=== PATIENT | male | born 1980 | race Caucasian/White ===

== ENCOUNTER 2021-09-16 11:18 | Emergency (ER) | payer OTHER, SELFPAY ==
--- NOTE | ~2021-09-16 | XR_ITS ---
EXAMINATION: [id number] EXAM DATE: 09/16/2021 11:36 INDICATION: No known recent injury provided at this time. Pain of the left ribs under breast. TECHNIQUE: Frontal projection of the upper left ribs, frontal projection of the lower left ribs, obli que projection of the left ribs, frontal chest x-ray(s) for interpretation. There is no prior study for comparison. FINDINGS: There are no displaced acute left rib fractures identified. Consider educating patient mya t even if there is a radiographically occult nondisplaced rib fracture, there is no specific treatmen t other than to refrain from activity that prevents healing. There is no soft tissue abnormality seen . No confluent consolidation, pneumothorax or pleural effusion suspected. Cardiomediastinal silhouett e is normal. IMPRESSION: No displaced left rib fractures. Reviewed, dictated and finalized at location [facility]
--- NOTE | 2021-09-16 11:24 | ED.BACK ---
HPI - Back Pain/Injury General Chief Complaint: Wound/Laceration Stated Complaint: left side upper rib pain Time Seen by Provider: 09/16/21 11:24 Source: patient and RN notes reviewed History of Present Illness HPI Narrative: Patient is a 41-year-old male who presents the urgent care with complaints of left-sided rib pain after a lot of coughing and sneezing. Patient states he has bronchitis during this time of year and has been using his inhaler as needed. Patient denies of any fevers or productive cough. States that he has been taking ibuprofen for his pain. Patient states that started approximately 3 days ago after a bad coughing fit. Patient is denying of any shortness of breath or chest tightness. No other acute complaints. No acute distress noted. Patient read the plan of care. Some parts of this dictation were generated by voice recognition software and may contain typographical and/or grammatical inaccuracies. Related Data Home Medications Medication Instructions Recorded Confirmed No Home Medications 09/16/21 09/16/21 Allergies Allergy/AdvReac Type Severity Reaction Status Date / Time morphine Allergy Nausea and Verified 09/16/21 11:38 Vomiting Review of Systems Review of Systems: CONSTITUTIONAL: Denies fever, chills, or sweats. EYES: Denies visual changes, redness, or discharge. ENT: Denies rhinorrhea, congestion, sore throat, or otalgia. CARDIOVASCULAR: Denies chest pain, palpitations, or edema. RESPIRATORY: Reports of nonproductive cough without dyspnea. Reports of left anterior chest pain with cough GASTROINTESTINAL: Denies abdominal pain, nausea, vomiting, or diarrhea. GENITOURINARY: Denies dysuria or hematuria. SKIN: Denies rash or itching. MUSCULOSKELETAL: Denies back pain, joint pain, or myalgia. NEUROLOGIC: Denies headache, numbness, or weakness. All other systems reviewed are negative, except as documented in HPI. PMFSH Comments At the time of my signature, I reviewed and agree with the nursing past medical, surgical, social, and family history. There is no relevant family history pertinent to the patient complaint. Exam Narrative: GENERAL: This is a well-nourished, well-developed patient, in no apparent distress. HEAD: normocephalic, atraumatic. EYES: PERRL. Sclera clear/white. Vision is grossly intact. EARS: External ears normal NOSE: External nose normal with no obvious nasal discharge, nares without redness, no rhinorrhea. THROAT: Mucous membranes moist NECK: Neck supple CARDIOVASCULAR: Regular rate and rhythm without murmurs, gallops, or rubs. RESPIRATORY: Clear to auscultation. Breath sounds equal bilaterally. No wheezes, rales, or rhonchi. Mild left anterior rib tenderness under the right breast. Slight pain with deep breathing noted. SKIN: warm, intact with no suspicious lesions or rash, good texture and turgor. NEURO: awake, alert, and oriented to person, place and time. There were no obvious focal neurologic abnormalities. EXTREMITIES: No clubbing, cyanosis, or edema. Course Vital Signs Vital signs: Vital Signs Temperature 98.5 F 09/16/21 11:25 Pulse Rate 97 09/16/21 11:25 Respiratory Rate 16 09/16/21 11:25 Blood Pressure 155/94 H 09/16/21 11:25 Pulse Oximetry 98 09/16/21 11:25 Temperature 98.5 F 09/16/21 11:25 Pulse Rate 97 09/16/21 11:25 Respiratory Rate 16 09/16/21 11:25 Blood Pressure 155/94 H 09/16/21 11:25 Pulse Oximetry 98 09/16/21 11:25 Reviewed-patient is informed that they may have pre-hypertension or hypertension based on a blood pressure reading in the department. I recommend the patient call the primary care provider listed on their discharge instructions or a physician of their choice this week to arrange follow-up for further evaluation of possible pre-hypertension or hypertension. MDM - Back Pain/Injury MDM Narrative Medical decision making narrative: Reviewed x-ray results with the patient. He is aware that there i
[2021-09-16 11:25] VITALS: BP 155/94; PULSE 97; RESP 16; TEMP 36.9; O2SAT 98
== END 2021-09-16 11:55 | disposition home or self-care (01) ==
PROVIDERS: Emergency Provider Nurse Practitioner Family; PCP Internal Medicine
DX: R07.81 Pleurodynia (principal); K21.9 Gastro-esophageal reflux disease without esophagitis
CPT/HCPCS: 71101; 99213; G0463